=== PATIENT | male | born 1940 | race Caucasian/White ===

== ENCOUNTER 2016-11-24 05:40 | Emergency (ER) | payer MEDICARE ==
[~2016-11-24] VITALS: Ht 170.2 cm; Wt 86.8 kg
[~2016-11-24 05:40] MED LIST: ACTOS30 MG OR; ALOCRIL OU; ANUCORT-HC25 MG RE; ASA LOW STR81 MG OR; ASPIRIN LOW DOS81 M1 PO; BACTRIM1 TAB PO; BL ADULT ASA81 MG OR; CADUET10 MG/20 M OR; CHERATUSSIN PO; CIPRO XR500 MG PO; CIPRO500 MG PO; DILAUDID2 MG PO; DULCOLAX5 MG PO; FLEXERIL OR; FLEXERIL5 MG OR; FLUTICASONE50 MCG; HYDROCHLOROT12.5 MG PO; HYZAAR1 TA1 OR; LIPITOR40 MG OR; LISINOPRIL10 MG PO; LORTAB5 PO; METFORMIN500 MG PO; NITROGLYCER0.4 MG SL; TRAMADOL HCL50 MG PO; ULTRAM50 M1 OR; ZESTRIL10 M1 PO
[2016-11-24] MEDS ORDERED: WARFARIN1 MG PO (06:00)
[2016-11-24] MEDS ORDERED: COREG3.125 MG PO (06:00)
[2016-11-24] MEDS ORDERED: ALDACTONE25 MG PO (06:01)
[2016-11-24] MEDS ORDERED: FERR SULFATE325 MG PO (06:01)
[2016-11-24] MEDS ORDERED: DOCUSATE SOD100 M2 PO (06:03)
[2016-11-24] MEDS ORDERED: RISPERIDONE0.5 MG PO (06:04)
[2016-11-24] MEDS ORDERED: WARFARIN2 MG PO (06:04)
[2016-11-24] MEDS ORDERED: LASIX 20 MG20 MG/TAB PO (06:05)
[2016-11-24] MEDS ORDERED: LEVOTHYROXIN50 MCG PO (06:05)
[2016-11-24] MEDS ORDERED: POT CHLORIDE10 ME5 PO (06:07)
[2016-11-24 06:26] LABS: HEMATOCRIT 38.5 % (39.0-50.0); HEMOGLOBIN 12.9 g/dl (14.0-18.0); IMMATURE GRANULOCYTES 0.5 % (0.0-1.0); MEAN CELL VOLUME 90.8 fL CALC (80.0-100.0); MEAN CORPUSCULAR HGB 30.4 pG CALC (26.0-32.0); MEAN CORPUSCULAR HGB CONC 33.5 g/L CALC (32.0-36.0); NEUT# 4.09 thou/uL (1.82-7.42); RED BLOOD COUNT 4.24 mill/uL (4.70-6.10)
[2016-11-24 06:38] LABS: ALBUMIN 4.5 g/dL (3.2-5.0); BILIRUBIN, TOTAL 0.4 mg/dL (0.0-1.4); CALCIUM 9.3 mg/dL (8.4-10.2); CREATININE 1.6 mg/dL (0.7-1.3); POTASSIUM 4.4 mmol/l (3.5-5.1); TOTAL PROTEIN 8.4 g/dL (6.3-8.2)
[2016-11-24 06:42] LABS: INTERNATIONAL NORMALIZED RATIO 2.1 RATIO (0.7-1.3); PROTHROMBIN TIME 23.7 SECONDS (9.0-12.5)
[2016-11-24] MEDS ORDERED: COUMADIN2.5 MG PO (06:44)
[2016-11-24 07:51] LABS: URINE BILIRUBIN - DIPSTICK NEGATIVE (NEGATIVE); URINE BLOOD DIPSTICK NEGATIVE (NEGATIVE); URINE CLARITY CLEAR; URINE COLOR YELLOW; URINE GLUCOSE - DIPSTICK NEGATIVE (NEGATIVE); URINE KETONE NEGATIVE (NEGATIVE); URINE LEUK ESTERASE NEGATIVE (NEGATIVE); URINE NITRITE - DIPSTICK NEGATIVE (Negative); URINE PH 5.5 (4.5-8.0); URINE PROTEIN - DIPSTICK NEGATIVE (NEG-TRACE); URINE SPECIFIC GRAVITY <=1.005; URINE UROBILINOGEN - DIPSTICK 0.2 E.U./dL (0.2)
[2016-11-24 08:20] VITALS: BP 176/74
== END 2016-11-24 08:20 | disposition short-term general hospital (02) ==
LOC: ED 05:40
PROVIDERS: Emergency Medicine
DX: I63.9 Cerebral infarction, unspecified (principal); G81.90 Hemiplegia, unspecified affecting unspecified side; I10 Essential (primary) hypertension

== ENCOUNTER 2016-12-21 19:59 | Inpatient (IN) | payer MEDICARE ==
[~2016-12-21] VITALS: Ht 170.2 cm; Wt 82.3 kg
[~2016-12-21 19:59] MED LIST changes: +ALDACTONE25 MG PO; +COREG3.125 MG PO; +COUMADIN2.5 MG PO; +DOCUSATE SOD100 M2 PO; +FERR SULFATE325 MG PO; +LASIX 20 MG20 MG/TAB PO; +LEVOTHYROXIN50 MCG PO; +POT CHLORIDE10 ME5 PO; +RISPERIDONE0.5 MG PO; +WARFARIN1 MG PO; +WARFARIN2 MG PO
[2016-12-21] MEDS ORDERED: COREG3.125 MG PO ×2 (20:16→20:19)
[2016-12-21] MEDS ORDERED: ASPIRIN81 MG PO (20:20)
[2016-12-21] MEDS ORDERED: LIPITOR40 M1 PO (20:20)
[2016-12-21] MEDS ORDERED: MICRO-K10 MEQ PO (20:25)
[2016-12-21] MEDS ORDERED: PROMOLAXIN100 MG PO (20:26)
[2016-12-21 20:47] LABS: HEMATOCRIT 37.3 % (39.0-50.0); HEMOGLOBIN 12.9 g/dl (14.0-18.0); IMMATURE GRANULOCYTES 0.4 % (0.0-1.0); MEAN CELL VOLUME 90.5 fL CALC (80.0-100.0); MEAN CORPUSCULAR HGB 31.3 pG CALC (26.0-32.0); MEAN CORPUSCULAR HGB CONC 34.6 g/L CALC (32.0-36.0); NEUT# 6.7 thou/uL (1.82-7.42); RED BLOOD COUNT 4.12 mill/uL (4.70-6.10); RED CELL DISTRI WIDTH 12.8 % (11.5-15.5)
--- NOTE | 2016-12-21 20:57 | NUR ---
STROKE EVALUATION COMPLETED VIA TELESTROKE. NEUROLOGIST DOES NOT FEEL THAT PATIENT IS A CANDIDATE FOR TPA POR TRANSFER TO [facility] AT THIS TIME. PATIENT ASKED IF HE WOULD BE GOING BACK TO [facility] AT THIS TIME. ADVISED HIOM THAT HE WOULD PROBABLY BE ADMITTED [facility].
[2016-12-21 21:03] LABS: ALBUMIN 4.2 g/dL (3.2-5.0); ALKALINE PHOSPHATASE 84 u/l (38-126); BILIRUBIN, TOTAL 0.7 mg/dL (0.0-1.4); BUN 22 mg/dL (8-23); BUN/CREATININE RATIO 18 (12-20 (CALC)); CALCIUM 9.2 mg/dL (8.4-10.2); CARBON DIOXIDE 21 mmol/l (22-30); CHLORIDE 102 mmol/l (95-108); CREATININE 1.3 mg/dL (0.7-1.3); GFR 53 ML/MIN (>=60 (CALC)); GFR FOR AFR.AMER. > 60 ML/MIN (>=60 (CALC)); GLUCOSE 91 mg/dL (82-115); SGOT/AST 37 u/l (19-48); SGPT/ALT 31 u/l (11-66); SODIUM 136 mmol/l (137-146); TOTAL PROTEIN 7.6 g/dL (6.3-8.2)
[2016-12-21 21:04] LABS: ANION GAP 18 (6-22 (CALC)); POTASSIUM 5.3 mmol/l (3.5-5.1)
[2016-12-21 21:14] LABS: MYOGLOBIN 70 ng/mL (0 - 121)
[2016-12-21 21:25] LABS: INTERNATIONAL NORMALIZED RATIO 2.4 RATIO (0.7-1.3); PROTHROMBIN TIME 27.6 SECONDS (9.0-12.5)
--- NOTE | 2016-12-21 22:54 | NUR ---
ADVISED OF ADMISSION TO THE ICU. PENDING THE ARRIVAL OF THE INPATIENT NURSING AIDE. PATIENT UNABLE TO GIVE A URINE SPECIMEN AT THIS TIME.
[2016-12-22] VITALS (13 sets, daily range): BP systolic 111–155; BP diastolic 49–68
--- NOTE | 2016-12-22 00:01 | NUR ---
76 yr old white male adm icu8 per stretcher from. transferred self with 2 assists to bed. bed weight obtained. rt sided weakness & facial droop conts. pt admits "no different" from stroke 1 month ago. cardiac technologist shows sinus ulises. #20 lac rl infusing @ [id number]. remains npo. history obtained per pt & er record. oriented to room. fall precautions initiated.
--- NOTE | 2016-12-22 00:02 | NUR ---
REPORT GIVEN TO ISABELLE VIERA IN THE ICU. PATIENT IS UNCHANGED NEUROLOGICALLY. TAKEN UPSTAIRS TO THE ICU BY RAMSES WADE RN WITH PATENT IV LINE AND CM.
--- NOTE | 2016-12-22 00:35 | NUR ---
voided per urinal. urine spec sent to lab.
[2016-12-22 01:09] LABS: URINE BILIRUBIN - DIPSTICK NEGATIVE (NEGATIVE); URINE BLOOD DIPSTICK NEGATIVE (NEGATIVE); URINE CLARITY CLEAR; URINE COLOR YELLOW; URINE GLUCOSE - DIPSTICK NEGATIVE (NEGATIVE); URINE KETONE NEGATIVE (NEGATIVE); URINE LEUK ESTERASE NEGATIVE (NEGATIVE); URINE NITRITE - DIPSTICK NEGATIVE (Negative); URINE PROTEIN - DIPSTICK NEGATIVE (NEG-TRACE); URINE UROBILINOGEN - DIPSTICK 0.2 E.U./dL (0.2)
--- NOTE | 2016-12-22 02:00 | NUR ---
eyes closed. no distress. monitor shows sinus ulises hr 46.
--- NOTE | 2016-12-22 04:00 | NUR ---
awakens easily. no change in neuro status. denies c/o. monitor shows sinus ulises hr 40.
--- NOTE | 2016-12-22 05:15 | NUR ---
lab here. blood drawn.
[2016-12-22 05:36] LABS: HEMATOCRIT 38.1 % (39.0-50.0); HEMOGLOBIN 12.9 g/dl (14.0-18.0); MEAN CELL VOLUME 90.5 fL CALC (80.0-100.0); MEAN CORPUSCULAR HGB 30.6 pG CALC (26.0-32.0); MEAN CORPUSCULAR HGB CONC 33.9 g/L CALC (32.0-36.0); RED BLOOD COUNT 4.21 mill/uL (4.70-6.10); RED CELL DISTRI WIDTH 12.7 % (11.5-15.5)
[2016-12-22 05:53] LABS: INTERNATIONAL NORMALIZED RATIO 2.4 RATIO (0.7-1.3); PROTHROMBIN TIME 27.5 SECONDS (9.0-12.5)
[2016-12-22 06:03] LABS: ANION GAP 15 (6-22 (CALC)); BUN 19 mg/dL (8-23); BUN/CREATININE RATIO 16 (12-20 (CALC)); CALCIUM 9.3 mg/dL (8.4-10.2); CALCULATED LDLCHOLESTEROL 60 mg/dL (62-129 (CALC)); CARBON DIOXIDE 22 mmol/l (22-30); CHLORIDE 104 mmol/l (95-108); CREATININE 1.2 mg/dL (0.7-1.3); GFR 59 ML/MIN (>=60 (CALC)); GFR FOR AFR.AMER. > 60 ML/MIN (>=60 (CALC)); GLUCOSE 80 mg/dL (82-115); HDL CHOLESTEROL 28 mg/dL (>=40); POTASSIUM 4.6 mmol/l (3.5-5.1); SODIUM 137 mmol/l (137-146); TOTAL CHOLESTEROL 108 mg/dl (0-199); TOTAL TRIGLYCERIDES 100 mg/dl (30-149); VLDL CHOLESTROL 20 mg/dl (0-38 (CALC))
[2016-12-22 06:34] LABS: TSH, 3RD GENERATION 2.96 uIU/mL (0.47 - 4.68)
--- NOTE | 2016-12-22 07:15 | NUR ---
PT RESTING IN BED ALERT AND ORIENTED, SPEECH SLIGHTLY SLURRED AND RIGHT SIDE WEAKNESS NOTED UE HAS MORE PRONOUNCED WEKANESS, BUT PT STATES IT IS BACK TO HIS "NORMAL". 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
--- NOTE | 2016-12-22 08:00 | NUR ---
IVF CONTINUE AT PRESCRIBED RATE, OFFERS NO NEW COMPLAINTS, CALL COLE WITHIN REACH, WILL CONTINUE TO MONITOR.
--- NOTE | 2016-12-22 09:00 | NUR ---
assisted with urinal usage, voided 300 ml clear yellow urine, took am medications with water and tolerated with no S/S of aspiration or difficulty swallowing, call davis remains within reach, will continue to monitor.
--- NOTE | 2016-12-22 10:15 | NUR ---
Pt dozes intermittenly, offers no new complaints, call davis within reach, will continue to monitor.
[2016-12-22] MEDS ORDERED: LOSARTAN POT50 MG PO (10:48)
[2016-12-22] MEDS ORDERED: LASIX 20 MG20 MG/TAB PO (10:48)
--- NOTE | 2016-12-22 11:30 | NUR ---
Pt verbalizes understanding of planned discharge and asking about what time he will return to the [facility], takes po medication w/o incident, and aware of planned diet awaitign lunch arrival to verify diet tolerance, will continue to monitor.
--- NOTE | 2016-12-22 12:00 | NUR ---
PT ATE 100% OF AFTERNOON MEAL WIOTH NO S/S OF ASPIRATION, TOLERATED DIET WELL.
--- NOTE | 2016-12-22 12:48 | NUR ---
SPOKE WITH GABRIELA ADMINSTRATOR AT [facility] SHE ARE AWARE OF HH ORDER TO CONTINUE AND SHE STATES SHE WILL CONTACT THE HOME HEALTH AGENCY THAT PT IS ACTIVE WITH (ASSISTED HH AGENCY PER [facility]) D/C INSTRUCTIONS AND ORDERS FAXED TO [facility] PER THEIR REQUEST.
--- NOTE | 2016-12-22 13:01 | NUR ---
PT DRESSED IN HIS PERSONAL CLOTHES AFTER INCONTINENCE BRIEF ON ALL DONE PER PT REQUEST, DURING PREVIOUSLY CHARTED CONVERSTAIONW GABE DUKE SHE IAS AWARE OF PLANNED D/C AND NEED FOR TRANSPORT BACK TO FACILITY AND STATES SHE WILL CONTACT HER TEAM TO COME AND AUDIENCE COORDINATOR PATIENT.
--- NOTE | 2016-12-22 13:14 | NUR ---
STAFF MEMBER FROM [facility] HERE TO [facility] PATIENT, PT STOOD WITH MOD/MAX ASSIST AND INTO WHEELCHAIR TO THEIR [place] VEHICLE VIA WC WITH [facility] AND [facility] STAFF, ALL BELONGINGS AND D/C INSTRUCTIONS SENT WITH PATIENT
== END 2016-12-22 13:15 | disposition designated cancer center or children's hospital (05) | DRG 69 ==
LOC: ENPENDDIS → ED 19:59 → ED-I 22:12 → ED 22:20 → ICU 22:21
PROVIDERS: Emergency Medicine; ADMIT Internal Medicine; ATTEND Internal Medicine
DX: G45.9 Transient cerebral ischemic attack, unspecified (principal); I69.351 Hemiplegia and hemiparesis following cerebral infarction affecting right dominant side; I48.0 Paroxysmal atrial fibrillation; R00.1 Bradycardia, unspecified; I69.322 Dysarthria following cerebral infarction; N18.3 Chronic kidney disease, stage 3 (moderate); I12.9 Hypertensive chronic kidney disease with stage 1 through stage 4 chronic kidney disease, or unspecified chronic kidney disease; E78.5 Hyperlipidemia, unspecified; I25.5 Ischemic cardiomyopathy; I25.10 Atherosclerotic heart disease of native coronary artery without angina pectoris; I44.0 Atrioventricular block, first degree; Z95.5 Presence of coronary angioplasty implant and graft; Z98.2 Presence of cerebrospinal fluid drainage device; Z87.820 Personal history of traumatic brain injury; Z99.3 Dependence on wheelchair; Z79.01 Long term (current) use of anticoagulants

== ENCOUNTER 2017-05-21 20:37 | Observation (INO) | payer MEDICARE ==
[~2017-05-21] VITALS: Ht 170.2 cm; Wt 79.9 kg
[~2017-05-21 20:37] MED LIST changes: +ASPIRIN81 MG PO; +LIPITOR40 M1 PO; +LOSARTAN POT50 MG PO; +MICRO-K10 MEQ PO; +PROMOLAXIN100 MG PO
[2017-05-21] MEDS ORDERED: KLOR-CON 1010 MEQ PO (21:05)
[2017-05-21] MEDS ORDERED: FLUOXETINE10 M2 PO (21:06)
[2017-05-21] MEDS ORDERED: COREG3.125 MG PO (21:08)
[2017-05-21] MEDS ORDERED: VITAMIN D50000 UNIT PO (21:09)
[2017-05-21] MEDS ORDERED: WARFARIN5 MG PO (21:11)
[2017-05-21 22:57] LABS: HEMATOCRIT 33.6 % (39.0-50.0); HEMOGLOBIN 11.3 g/dl (14.0-18.0); IMMATURE GRANULOCYTES 0.4 % (0.0-1.0); MEAN CELL VOLUME 92.3 fL CALC (80.0-100.0); MEAN CORPUSCULAR HGB CONC 33.6 g/L CALC (32.0-36.0); NEUT# 6.2 thou/uL (1.82-7.42); RED BLOOD COUNT 3.64 mill/uL (4.70-6.10); RED CELL DISTRI WIDTH 13.2 % (11.5-15.5)
[2017-05-21 23:09] LABS: ALBUMIN 4.3 g/dL (3.2-5.0); BILIRUBIN, TOTAL 0.6 mg/dL (0.0-1.4); CALCIUM 9.1 mg/dL (8.4-10.2); CREATININE 1.8 mg/dL (0.7-1.3); POTASSIUM 4.8 mmol/l (3.5-5.1); TOTAL PROTEIN 7.3 g/dL (6.3-8.2)
[2017-05-21 23:13] LABS: URINE BILIRUBIN - DIPSTICK NEGATIVE (NEGATIVE); URINE BLOOD DIPSTICK NEGATIVE (NEGATIVE); URINE CLARITY CLEAR; URINE COLOR YELLOW; URINE GLUCOSE - DIPSTICK NEGATIVE (NEGATIVE); URINE KETONE NEGATIVE (NEGATIVE); URINE LEUK ESTERASE NEGATIVE (NEGATIVE); URINE NITRITE - DIPSTICK NEGATIVE (Negative); URINE PROTEIN - DIPSTICK NEGATIVE (NEG-TRACE); URINE UROBILINOGEN - DIPSTICK 0.2 E.U./dL (0.2)
[2017-05-21 23:15] LABS: INTERNATIONAL NORMALIZED RATIO 1.5 RATIO (0.7-1.3); PROTHROMBIN TIME 16.2 SECONDS (9.0-12.5)
[2017-05-21 23:17] LABS: BARBITURATES NEGATIVE (NEGATIVE); COCAINE NEGATIVE (NEGATIVE); METHADONE NEGATIVE (NEGATIVE); OXCYCODONE NEGATIVE (NEGATIVE); TETRAHYDROCANNABIONOL NEGATIVE (NEGATIVE); TRICYLIC ANTIDEPRESSANTS NEGATIVE (NEGATIVE)
[2017-05-22 01:28] VITALS: BP 136/59
[2017-05-22 01:33] VITALS: BP 119/70
[2017-05-22 01:38] VITALS: BP 125/70
[2017-05-22 03:55] VITALS: BP 104/55
[2017-05-22 05:08] LABS: CREATININE 1.5 mg/dL (0.7-1.3); POTASSIUM 4.2 mmol/l (3.5-5.1)
[2017-05-22 05:24] LABS: HEMATOCRIT 33.4 % (39.0-50.0); HEMOGLOBIN 11.3 g/dl (14.0-18.0); MEAN CORPUSCULAR HGB 31.5 pG CALC (26.0-32.0); MEAN CORPUSCULAR HGB CONC 33.8 g/L CALC (32.0-36.0); RED BLOOD COUNT 3.59 mill/uL (4.70-6.10)
[2017-05-22 07:43] VITALS: BP 120/55
[2017-05-22 11:07] VITALS: BP 116/71
== END 2017-05-22 14:12 ==
LOC: ED 20:37 → ED-I 22:37 → ED 05-22 00:31 → MS2 05-22 00:32
PROVIDERS: Emergency Medicine; ADMIT Internal Medicine; ATTEND Internal Medicine
DX: S00.81XA Abrasion of other part of head, initial encounter (principal); S80.211A Abrasion, right knee, initial encounter; E03.9 Hypothyroidism, unspecified; I10 Essential (primary) hypertension; J44.9 Chronic obstructive pulmonary disease, unspecified; N17.9 Acute kidney failure, unspecified; E11.9 Type 2 diabetes mellitus without complications; I69.951 Hemiplegia and hemiparesis following unspecified cerebrovascular disease affecting right dominant side; I48.0 Paroxysmal atrial fibrillation; I25.5 Ischemic cardiomyopathy; I25.10 Atherosclerotic heart disease of native coronary artery without angina pectoris; D64.9 Anemia, unspecified; I25.2 Old myocardial infarction; W18.30XA Fall on same level, unspecified, initial encounter; Y92.128 Other place in nursing home as the place of occurrence of the external cause; Z79.01 Long term (current) use of anticoagulants; Z86.718 Personal history of other venous thrombosis and embolism; Z98.2 Presence of cerebrospinal fluid drainage device; Z85.51 Personal history of malignant neoplasm of bladder; Z95.5 Presence of coronary angioplasty implant and graft; Z95.2 Presence of prosthetic heart valve

== ENCOUNTER 2019-02-15 17:55 | Emergency (ER) | payer MEDICARE ==
[~2019-02-15] VITALS: Ht 170.2 cm; Wt 80.0 kg
[~2019-02-15 17:55] MED LIST changes: +FLUOXETINE10 M2 PO; +KLOR-CON 1010 MEQ PO; +VITAMIN D50000 UNIT PO; +WARFARIN5 MG PO
[2019-02-15 18:33] LABS: HEMATOCRIT 33.2 % (39.0-50.0); IMMATURE GRANULOCYTES 0.5 % (0.0-5.0); MEAN CELL VOLUME 90.7 fL CALC (80.0-100.0); MEAN CORPUSCULAR HGB 30.1 pG CALC (26.0-32.0); MEAN CORPUSCULAR HGB CONC 33.1 g/L CALC (32.0-36.0); NEUT# 5.67 thou/uL (1.82-7.42); RED BLOOD COUNT 3.66 mill/uL (4.70-6.10); RED CELL DISTRI WIDTH 13.1 % (11.5-15.5)
[2019-02-15 18:52] LABS: INTERNATIONAL NORMALIZED RATIO 2.5 RATIO (0.7-1.3)
[2019-02-15 19:05] VITALS: BP 147/78
== END 2019-02-15 19:23 | disposition home or self-care (01) ==
LOC: ED 17:55
PROVIDERS: Family Medicine
DX: S50.811A Abrasion of right forearm, initial encounter (principal); F03.90 Unspecified dementia, unspecified severity, without behavioral disturbance, psychotic disturbance, mood disturbance, and anxiety; X58.XXXA Exposure to other specified factors, initial encounter; Y92.099 Unspecified place in other non-institutional residence as the place of occurrence of the external cause; Z79.01 Long term (current) use of anticoagulants

== ENCOUNTER 2019-10-20 | Emergency (ER) | payer MEDICARE ==
[2019-10-20 08:48] LABS: HEMATOCRIT 28.5 % (39.0-50.0); HEMOGLOBIN 9.4 g/dl (14.0-18.0); IMMATURE GRANULOCYTES 0.3 % (0.0-5.0); MEAN CELL VOLUME 91.3 fL CALC (80.0-100.0); MEAN CORPUSCULAR HGB 30.1 pG CALC (26.0-32.0); NEUT# 8.68 thou/uL (1.82-7.42); RED BLOOD COUNT 3.12 mill/uL (4.70-6.10); RED CELL DISTRI WIDTH 13.6 % (11.5-15.5)
[2019-10-20 09:07] LABS: BILIRUBIN, TOTAL 0.6 mg/dL (0.0-1.4); CREATININE 1.6 mg/dL (0.7-1.3); POTASSIUM 4.8 mmol/l (3.5-5.1); PROTHROMBIN TIME 20.1 SECONDS (9.0-12.5); TOTAL PROTEIN 7.1 g/dL (6.3-8.2)
[2019-10-20 11:38] LABS: URINE BILIRUBIN - DIPSTICK NEGATIVE (NEGATIVE); URINE BLOOD DIPSTICK NEGATIVE (NEGATIVE); URINE COLOR YELLOW; URINE GLUCOSE - DIPSTICK NEGATIVE (NEGATIVE); URINE KETONE NEGATIVE (NEGATIVE); URINE LEUK ESTERASE NEGATIVE (NEGATIVE); URINE NITRITE - DIPSTICK NEGATIVE (Negative); URINE PH 5.5 (4.5-8.0); URINE PROTEIN - DIPSTICK NEGATIVE (NEG-TRACE); URINE UROBILINOGEN - DIPSTICK 0.2 E.U./dL (0.2)
[2019-10-20] MEDS ORDERED: LORATADINE10 M1 PO (12:20)
== END 2019-10-20 12:33 | disposition home or self-care (01) ==
DX: R51 Headache (principal); D72.829 Elevated white blood cell count, unspecified; E11.9 Type 2 diabetes mellitus without complications; I10 Essential (primary) hypertension; F03.90 Unspecified dementia, unspecified severity, without behavioral disturbance, psychotic disturbance, mood disturbance, and anxiety; I25.2 Old myocardial infarction; W18.30XA Fall on same level, unspecified, initial encounter; Z86.73 Personal history of transient ischemic attack (TIA), and cerebral infarction without residual deficits; Z79.01 Long term (current) use of anticoagulants; R94.31 Abnormal electrocardiogram [ECG] [EKG]

== ENCOUNTER 2019-12-16 06:30 | Observation (INO) | payer MEDICARE ==
[~2019-12-16] VITALS: Ht 170.2 cm; Wt 78.5 kg
[~2019-12-16 06:30] MED LIST changes: +LORATADINE10 M1 PO
--- NOTE | 2019-12-16 06:45 | NUR ---
PT. TO ROOM 10 VIA EMS WITH C/O FALLING OOB THIS AM AND INJURING HIS NOSE. ABRASION TO BRIDGE OF NOSE AND BLOODY DRAINAGE FROM RIGHT NARES. PT. C/O PAIN A 3 ON A SCALE OF 1-10.
--- NOTE | 2019-12-16 06:49 | NUR ---
REPORT TO ISAIAH HURTADO.
--- NOTE | 2019-12-16 06:50 | NUR ---
REPORT RECIEVED FROM GENESIS YA; PT SWABBED FOR COVID-19 @0229; PT DENIES ANY NEEDS AT THIS TIME; WILL CONTINUE TO MONITOR
--- NOTE | 2019-12-16 07:50 | NUR ---
PT RESTING ON STRETCHER; ADVISED OF CONTINUED TESTING AND CONTINUED WAIT TIME; PT C/O LEFT KNEE PAIN; MD NOTIFIED; LABS DRAWN; PT DENIES ANY OTHER NEEDS AT THIS TIME; WILL CONTINUE TO MONITOR
[2019-12-16 08:32] LABS: HEMOGLOBIN 9.9 g/dl (14.0-18.0); IMMATURE GRANULOCYTES 0.4 % (0.0-5.0); MEAN CELL VOLUME 89.8 fL CALC (80.0-100.0); MEAN CORPUSCULAR HGB 29.6 pG CALC (26.0-32.0); NEUT# 4.06 thou/uL (1.82-7.42); RED BLOOD COUNT 3.34 mill/uL (4.70-6.10); RED CELL DISTRI WIDTH 13.6 % (11.5-15.5)
--- NOTE | 2019-12-16 08:46 | NUR ---
PT RESTING ON STRETCHER; NO S/S OF DISTRESS NOTED; VSS; PT ADVISED OF CONTINUED WAIT TIME; CALL LIGHT WITHIN REACH; WILL CONTINUE TO MONITOR
[2019-12-16 08:49] LABS: ACT PARTIAL THROMBO TIME 40.1 SECONDS (20.0-32.5)
[2019-12-16 08:50] LABS: INTERNATIONAL NORMALIZED RATIO 3.1 RATIO (0.7-1.3); PROTHROMBIN TIME 30.7 SECONDS (9.0-12.5)
[2019-12-16 08:52] LABS: BILIRUBIN, TOTAL 0.4 mg/dL (0.0-1.4); CREATININE 1.6 mg/dL (0.7-1.3); POTASSIUM 4.9 mmol/l (3.5-5.1); TOTAL PROTEIN 7.1 g/dL (6.3-8.2)
--- NOTE | 2019-12-16 09:50 | NUR ---
DR RODRIGUEZ AT BEDSIDE TO DISCUSS POC AND PLAN TO ADMIT FOR OBSERVATION; PT VERBALIZES UNDERSTANDING; VSS; WILL CONTINUE TO MONITOR
--- NOTE | 2019-12-16 10:30 | NUR ---
PT ADVISED OF POC AND CONTINUED WAIT TIME
--- NOTE | 2019-12-16 10:57 | NUR ---
PT ARRIVED TO MED/SURG ROOM 291 IN STABLE CONDITION VIA STRETCHER ACCOMPANIED BY GENESIS LANDAVERDE;PT ASSISTED TO HOSPITAL BED;PT A&O X3,ORIENTED TO ROOM AND CALL LIGHT SYSTEM;PT REPORTS GETTING OUT OF BED THIS MORNING AND TRIPPING,FALLING AND HITTING HIS HEAD OFF THE GROUND;PT DENIES ANY CURRENT PAIN AT THIS TIME AFTER PAIN MEDICATION ADMINISTRATION IN ER,PAIN SCALE AND REPORTING EDUCATED;RESPIRATIONS EVEN AND UNLABORED ON RA,CLEAR LUNG SOUNDS;ABDOMEN SOFT ON PALPATION AND ACTIVE IN ALL 4 QUADRANTS,LAST BM 12/15/19;WEAK PEDAL PULSES;TELE MONITORING IN PLACE;#22G TO LAC FLUSHED AND PATENT,SITE APPEARS HEALTHY;ABRASIONS NOTED TO THE BRIDGE OF PT NOSE AND FACE;ALLERGY AND FALL BAND APPLIED;PT DENIES ANY ADDITIONAL NEEDS AT THIS TIME AND IS ENCOURAGED TO CALL FOR ASSISTANCE IF NEEDED;FALL PRECAUTIONS REMAIN IN PLACE WITH BED IN THE LOWEST POSITION AND BED ALARM ON FOR SAFETY;CALL LIGHT IN REACH;WILL CONTINUE TO MONITOR
--- NOTE | 2019-12-16 11:00 | NUR ---
Admission Note Report Given to: MARIA LUISA BURRIS Transported by: Wheelchair X Stretcher Transported with: X Nurse Transporter X Patent IV O2 X Risk Intern Location: ICU X MS2
[2019-12-16 11:18] VITALS: BP 160/66
--- NOTE | 2019-12-16 12:20 | NUR ---
PT RESTING IN SEMI FOWLERS POSITION EATING LUNCH;RESPIRATIONS REMAIN EVEN AND UNLABORED ON RA;PT DENIES ANY CURRENT PAIN OR NEEDS;TELE MONITORING IN PLACE;ASSESSMENT REMAINS UMCHANGED AT THIS TIME;PT ENCOURAGED TO CALL FOR ASSISTANCE IF NEEDED;FALL PRECAUTIONS IN PLACE WITH BED IN THE LOWEST POSITION AND BED ALARM ON FOR SAFETY;CALL LIGHT IN REACH;WILL CONTINUE TO MONITOR
[2019-12-16 15:15] VITALS: BP 124/58
--- NOTE | 2019-12-16 15:30 | NUR ---
PT RESTING IN SEMI FOWLERS POSITION;RESPIRATIONS EVEN AND UNLABORED ON RA;PT DENIES ANY CURRENT PAIN OR NEEDS;TELE MONITORING IN PLACE;IV SITE PATENT;ASSESSMENT REMAINS UNCHANGED AT THIS TIME;ENCOURAGED PT TO CALL FOR ASSISTANCE IF NEEDED;FALL PRECAUTIONS REMAIN IN PLACE WITH BED ALARM ON FOR SAFETY;CALL LIGHT IN REACH;WILL CONTINUE TO MONITOR
[2019-12-16 18:53] VITALS: BP 130/62
--- NOTE | 2019-12-16 19:06 | NUR ---
REPORT RECEIVED FROM MARIA LUISA BURRIS. PT RESTING IN BED. NO S/S OF DISTRESS. BED ALARM ACTIVE FOR PT SAFETY. WILL CONTINUE TO MONITOR.
--- NOTE | 2019-12-16 21:06 | NUR ---
PT RESTING IN BED. ALERT AND ORIENTED. RESPIRATIONS EVEN AN DUNLABORED, LUNGS SOUND CLEAR DIMINISHED. PEDAL PULSES ARE WEAK. PT DENIES ANY PAIN AT THIS TIME. PT PROVIDED WITH ICE WATER. SAFETY PRECAUTIONS IN PLACE. WILL CONTINUE TO MONITOR.
--- NOTE | 2019-12-17 00:10 | NUR ---
PT RESTING IN BED. NO S/S OF DISTRESS AT THIS TIME. BED ALARM ACTIVE FOR PT SAFETY. WILL CONTINUE TO MONITOR.
[2019-12-17 01:23] VITALS: BP 132/79
--- NOTE | 2019-12-17 03:51 | NUR ---
PT RESTING IN BED, NO S/S OF DISTRESS, BED ALARM ACTIVE FOR PT SAFETY. WILL CONTINUE TO MONITOR.
--- NOTE | 2019-12-17 07:30 | NUR ---
REPORT RECEIVED FROM GENESIS WILLIS. PT SITTING UP ON EDGE OF BED; ALERT AND ORIENTED. SET UP FOR BREAKFAST. DENIES PAIN. RESPIRATIONS EVEN AND UNLABORED ON ROOM AIR. ABRASION TO NOSE; NEURO CHECK WNL. TELE ON. ON AIRBORNE;CONTACT PRECAUTIONS PENDING COVID TEST RESULTS. PLAN OF CARE REVIEWED. PT ENCOURAGED TO VERBALIZE CONCERNS. STATES UNDERSTANDING AND VERBALIZES WITH TO GO HOME. SAFETY MEASURES IN PLACE. CALL LIGHT WITHIN REACH.
[2019-12-17 07:43] LABS: HEMATOCRIT 29.9 % (39.0-50.0); MEAN CELL VOLUME 89.5 fL CALC (80.0-100.0); MEAN CORPUSCULAR HGB 29.9 pG CALC (26.0-32.0); MEAN CORPUSCULAR HGB CONC 33.4 g/dL CAL (32.0-36.0); RED BLOOD COUNT 3.34 mill/uL (4.70-6.10); RED CELL DISTRI WIDTH 13.4 % (11.5-15.5)
[2019-12-17 07:54] LABS: CHOLESTEROL HDL RATIO 4.1 (<4.4 (CALC)); MAGNESIUM 2.2 mg/dL (1.6-2.3)
[2019-12-17 07:55] LABS: ALBUMIN 3.5 g/dL (3.2-5.0); BILIRUBIN, TOTAL 0.4 mg/dL (0.0-1.4); CREATININE 1.8 mg/dL (0.7-1.3); POTASSIUM 5.3 mmol/l (3.5-5.1); TOTAL PROTEIN 6.3 g/dL (6.3-8.2)
[2019-12-17 08:00] VITALS: BP 123/58
[2019-12-17 08:10] LABS: INTERNATIONAL NORMALIZED RATIO 2.9 RATIO (0.7-1.3); PROTHROMBIN TIME 28.7 SECONDS (9.0-12.5)
--- NOTE | 2019-12-17 08:53 | NUR ---
DR. SAPP AT BEDSIDE.
[2019-12-17 11:00] VITALS: BP 135/50
--- NOTE | 2019-12-17 11:08 | NUR ---
TYLENOL GIVEN FOR 4/10 HEADACHE. NEURO CHECK REMAINS WNL FOR PT. ENCOURAGED TO GET UP TO CHAIR FOR LUNCH. IV SITE APPEARS HEALTHY AND FLUSHES.
--- NOTE | 2019-12-17 15:18 | NUR ---
PT AGITATED AND REQUESTING TO SPEAK WITH STARCH AND PROSIZE MIXER. NURSE TALKED TO PT; HE IS COLD AND WANTS TO GO HOME. EXPLAINED REASON FOR HOSPITALIAZATION AND PENDING COVID TEST RESULTS. PROVIDED HIS PANTS TO HIM PER REQUEST AND GIVEN A WARM BLANKET. PT SATISFIED.
[2019-12-17 16:12] VITALS: BP 131/45
--- NOTE | 2019-12-17 16:13 | NUR ---
SITTING UP IN BEDSIDE CHAIR; LINENS CHANGED. NO REQUESTS OR CONCERNS AT THIS TIME. SEEMS MORE RELAXED. CALL LIGHT WITHIN REACH.
--- NOTE | 2019-12-17 18:04 | NUR ---
STAFF FROM [facility] CALLED FOR UPDATE.
--- NOTE | 2019-12-17 19:04 | NUR ---
COVID-19 RESULTS NEGATIVE PER LAB
[2019-12-17 19:20] VITALS: BP 150/70
--- NOTE | 2019-12-17 20:15 | NUR ---
REPORT FROM KELI HURTADO. PT ALERT AND ORIENTED X3. MOVED FROM NEGATIVE PRESSURE TO ROOM 261. NO APPARENT DISTRESS NOTED. PT REMOVED IV SITE, CATH INTACT. DISCUSSED POC. PT FORGETFUL AND NONCOMPLIANT WITH CALL LIGHT. BED ALARM FOR SAFETY. CALL LIGHT WITHIN REACH. WILL CONTINUE TO MONITOR.
--- NOTE | 2019-12-17 20:18 | NUR ---
INFORMED OF COVID RESULTS
--- NOTE | 2019-12-17 20:35 | NUR ---
REPORT FROM KELI RN. PT ALERT TO SELF. MOVED FROM NEGATIVE PRESSURE TO ROOM 261. NO APPARENT DISTRESS NOTED. PT REMOVED IV SITE, CATH INTACT. DISCUSSED POC. PT DOES NOT VERBALIZED UNDERSTANDING, DUE TO COGNITIVE BARRIERS. WILL REINFORCE AND REORIENTED NEEDED. BED ALARM FOR SAFETY. CALL LIGHT WITHIN REACH. WILL CONTINUE TO MONITOR.
--- NOTE | 2019-12-17 22:22 | NUR ---
PT REFUSING CLINICAL REVIEWER AND NEW IV START AT THIS TIME. PHYSCIAN MADE AWARE AT THIS TIME. ORDERS RECEIVED TO D/C CLINICAL REVIEWER.
--- NOTE | 2019-12-17 23:45 | NUR ---
PT RESTING IN BED WITH EYES CLOSED. NO APPARENT DISTRESS NOTED. CALL LIGHT WITHIN REACH. WILL CONTINUE TO MONITOR.
[2019-12-18 00:30] VITALS: BP 123/45
[2019-12-18 03:30] VITALS: BP 134/66
--- NOTE | 2019-12-18 03:33 | NUR ---
PT RESTING IN BED WITH EYES CLOSED. NO APPARENT DISTRESS NOTED. CALL LIGHT WITHIN REACH AND BED ALARM FOR SAFETY. WILL CONTINUE TO MONITOR.
[2019-12-18 04:59] VITALS: BP 134/66
[2019-12-18 07:50] VITALS: BP 142/57
--- NOTE | 2019-12-18 07:50 | NUR ---
ASSESSMENT IS COMPLETED: HR IS REG,PULSES ARE STRONG X4, ABD IS SOFT WITH ACTIVE BS. BREATH SOUNDS ARE CLEAR,BILATERALLY, NO C/O SOB. ABRASION ON HIS NOSE IS CDI. CONTINUE TO OBSERVE AND MONITOR.
[2019-12-18 09:17] LABS: CREATININE 1.4 mg/dL (0.7-1.3)
[2019-12-18 09:30] LABS: POTASSIUM 5.3 mmol/l (3.5-5.1)
[2019-12-18 09:36] LABS: INTERNATIONAL NORMALIZED RATIO 1.9 RATIO (0.7-1.3); PROTHROMBIN TIME 19.6 SECONDS (9.0-12.5)
--- NOTE | 2019-12-18 11:44 | NUR ---
SPOKE WITH STAFF AT THE [facility]. RE: DISCHARGE AND WILL NEED TRANSPORT TO TAKE HOME. THEY WILL CALL A FAMILY MEMBER IN [place]OWN. CONTINUE TO OBSERVE AND MONITOR.
--- NOTE | 2019-12-18 12:00 | NUR ---
PT IS SITTING ON THE SIDE OF THE BED WAITING FOR DISCHARGE.
--- NOTE | 2019-12-18 12:46 | NUR ---
FAMILY HERE TO TRANSPORT PT BACK TO THE [facility]. PT ABLE TO MOVE WELL TO GET IN THE CAR WITH ALL BELONGINGS. DISCHARGE INFORMATION AND RESULTS WERE FAXED TO THE [facility] PER REQUEST. Discharge instructions given. Patient verbalizes understanding of same. Discharged in stable condition via Wheelchair to [facility] with family. All belongings sent with pt.
== END 2019-12-18 12:46 ==
LOC: ED 06:30 → ED-I 09:34 → ED 09:44 → ED-I 09:45 → MS2 09:45
PROVIDERS: Nurse Practitioner Family; ADMIT Internal Medicine; ATTEND Internal Medicine
DX: S00.03XA Contusion of scalp, initial encounter (principal); S00.31XA Abrasion of nose, initial encounter; S00.81XA Abrasion of other part of head, initial encounter; I12.9 Hypertensive chronic kidney disease with stage 1 through stage 4 chronic kidney disease, or unspecified chronic kidney disease; E11.22 Type 2 diabetes mellitus with diabetic chronic kidney disease; N18.3 Chronic kidney disease, stage 3 (moderate); I25.10 Atherosclerotic heart disease of native coronary artery without angina pectoris; D63.1 Anemia in chronic kidney disease; R00.1 Bradycardia, unspecified; I48.0 Paroxysmal atrial fibrillation; E87.1 Hypo-osmolality and hyponatremia; J44.9 Chronic obstructive pulmonary disease, unspecified; E03.9 Hypothyroidism, unspecified; F03.90 Unspecified dementia, unspecified severity, without behavioral disturbance, psychotic disturbance, mood disturbance, and anxiety; I25.2 Old myocardial infarction; W06.XXXA Fall from bed, initial encounter; Y92.099 Unspecified place in other non-institutional residence as the place of occurrence of the external cause; Z86.73 Personal history of transient ischemic attack (TIA), and cerebral infarction without residual deficits; Z79.01 Long term (current) use of anticoagulants; Z20.828 Contact with and (suspected) exposure to other viral communicable diseases
CPT/HCPCS: G0378

== ENCOUNTER 2020-02-12 12:42 | Observation (INO) | payer MEDICARE ==
[~2020-02-12] VITALS: Ht 170.2 cm; Wt 78.7 kg
--- NOTE | 2020-02-12 13:20 | NUR ---
pt restign supine with hob elevated and c collar intact. initiated iv and labs drawn. pt updated on poc and agreeable.
[2020-02-12 13:22] LABS: HEMATOCRIT 26.4 % (39.0-50.0); HEMOGLOBIN 8.6 g/dl (14.0-18.0); IMMATURE GRANULOCYTES 0.4 % (0.0-5.0); MEAN CELL VOLUME 90.7 fL CALC (80.0-100.0); MEAN CORPUSCULAR HGB 29.6 pG CALC (26.0-32.0); MEAN CORPUSCULAR HGB CONC 32.6 g/dL CAL (32.0-36.0); NEUT# 5.84 thou/uL (1.82-7.42); RED BLOOD COUNT 2.91 mill/uL (4.70-6.10); RED CELL DISTRI WIDTH 13.7 % (11.5-15.5)
[2020-02-12 13:40] LABS: ALBUMIN 3.7 g/dL (3.2-5.0); BILIRUBIN, TOTAL 0.5 mg/dL (0.0-1.4); TOTAL PROTEIN 6.7 g/dL (6.3-8.2)
[2020-02-12 13:43] LABS: POTASSIUM 5.5 mmol/l (3.5-5.1)
[2020-02-12 13:44] LABS: INTERNATIONAL NORMALIZED RATIO 3.1 RATIO (0.7-1.3); PROTHROMBIN TIME 30.5 SECONDS (9.0-12.5)
[2020-02-12] MEDS ORDERED: KLOR-CON SPRIN10 MEQ PO (14:04)
[2020-02-12] MEDS ORDERED: SPIRONOLACTONE25 MG PO (14:06)
--- NOTE | 2020-02-12 14:46 | NUR ---
INITIATED IV FLUIDS. VSS. PT UPDATED ON POC AND WAIT TIME FOR REMOVAL OF C COLLAR. MAEW. PT DENIES PAIN.
--- NOTE | 2020-02-12 15:50 | NUR ---
PT RESTING IN NO DISTRESS. VSS. UPDATED ON POC. RESP EVEN AND UNLABORED. PT ALERT TO SELF AND PLACE. PLEASANT AND CONVERSIVE
--- NOTE | 2020-02-12 16:20 | NUR ---
PT UP TO BEDSIDE TO STAND TO URINATE. NOTED ORTHOSTASIS WHEN STANDING AND RETURN OF DIZZINESS. EDP UPDATED. PT UPDATED ON POC AND ADMIT.PT AGREEABLE.
[2020-02-12 17:00] LABS: URINE BILIRUBIN - DIPSTICK NEGATIVE (NEGATIVE); URINE BLOOD DIPSTICK NEGATIVE (NEGATIVE); URINE COLOR YELLOW; URINE GLUCOSE - DIPSTICK NEGATIVE (NEGATIVE); URINE KETONE NEGATIVE (NEGATIVE); URINE LEUK ESTERASE NEGATIVE (NEGATIVE); URINE NITRITE - DIPSTICK NEGATIVE (Negative); URINE PROTEIN - DIPSTICK NEGATIVE (NEG-TRACE); URINE SPECIFIC GRAVITY 1.015; URINE UROBILINOGEN - DIPSTICK 0.2 E.U./dL (0.2)
--- NOTE | 2020-02-12 17:10 | NUR ---
TRANSPORTED TO [facility] VIA STRETCHER ON TELE IN NO DISTRESS
[2020-02-12 17:35] VITALS: BP 136/57
--- NOTE | 2020-02-12 18:07 | NUR ---
PT ARRIVES TO ROOM 280 FROM ER ACCOMPANIED BY EDUARD HURTADO. PT IS AWAKE, ALERT, TALKATIVE, ORIENTED X 2. LUNGS CLEAR, RA. FOREHEAD ABRASION FROM FALL EARLIER. TEDs PLACED. PT ADVISED TO CALL IF HE FEELS THAT HE NEEDS TO GET OOB. BED ALARM SET.
[2020-02-12 19:20] VITALS: BP 135/84
--- NOTE | 2020-02-12 20:03 | NUR ---
PT ASSESSMENT COMPLETED AT THIS TIME. NEURO'S INTACT, PT LOCX4. ASSISTED PT W/TV AND OFFERED SNACK/ASKED FOR SANDWICH/PROVIDED. NO S/O DISTRESS NOTED. PT DENIES HEADACHE/PAIN/N/V AT THIS TIME. WILL CONTINUE TO MONITOR. CALL LIGHT AT SIDE AND PT REORIENTED TO ITS USE, VERBALIZED UNDERSTANDING. BED ALARM PLACED FOR PRECAUTION MEASURES.
--- NOTE | 2020-02-12 21:55 | NUR ---
PT SLEEPING HIGH FOWLERS POSITION IN BED. NO S/O DISTRESS NOTED. LIGHTS OFF AND TV ON LOW.
[2020-02-13] VITALS (7 sets, daily range): BP systolic 99–118; BP diastolic 44–55
--- NOTE | 2020-02-13 03:28 | NUR ---
PT FOUND WITH LEGS HANGING OUT OF THE BED WITH URINAL IN HAND. 300CC OF CLEAR YELLOW URINE EMPTIED FROM URINAL. LIGHTS ARE OFF AND TV ON. NO S/O DISTRESS. ASSISTED PT REPOSITIONING IN BED AND PT COVERED FOR COMFORT. DENIES ANY OTHER NEEDS AT THIS TIME.
--- NOTE | 2020-02-13 05:53 | NUR ---
PT MEDICATED ORDERS PROVIDE. NO S/O DISTRESS NOTED. PT ASSISTED REPOSITIONING. LEFT DRINKING WATER AND WATCHING TV. LAB ARRIVING TO ROOM I WAS LEAVING.
[2020-02-13 06:33] LABS: INTERNATIONAL NORMALIZED RATIO 3.4 RATIO (0.7-1.3); PROTHROMBIN TIME 33.3 SECONDS (9.0-12.5)
[2020-02-13 06:47] LABS: CREATININE 1.5 mg/dL (0.7-1.3); POTASSIUM 4.9 mmol/l (3.5-5.1)
--- NOTE | 2020-02-13 13:17 | NUR ---
PT IS ALERT AND ORIENTED X 2. aBLE TO MAKE NEEDS KNOWN. SKIN WARM TO TOUCH. MEDICATION GIVEN AND TOLERATED WELL. MEAL AND FLUID INTAKE GOOD. PT USES URINAL THROUGHOUT THE DAY WITH STAFF ASSIST. IN BED AT THIS TME WITH EYES CLOSED. CALL LIGHT WITHIN REACH. BED ALARM IN PLACE. WILL CONTINUE TO OBSERVE.
--- NOTE | 2020-02-13 17:13 | NUR ---
PT IS IN BED WITH EYES OPEN. ABLE TO MAKE NEEDS KNOWN. SKIN WARM TO TOUCH. MEDS GIVEN AND TOLERATED WELL. COMPLAINED OF PAIN AT 4 ON SCALE OF 1-10 WITH 10 GREATEST IN NECK AND JOINTS. CONTINENT OF B/B. NS UP AND RUNNING WITH NO COMPLICATIONS
--- NOTE | 2020-02-13 19:42 | NUR ---
PT IS IN BED NO S/O DISTRES NOTED, PT MEDICATED ORDERS PROVIDE. PT OFFERED JUICE/PROVIDED, DENIES SNACK STATING "I'M FULL." PT DENIES HAVING BM THIS DAY, BUT IS USING URINAL WITH CLEAR YELLOW URINE AT BEDSIDE. ASSISTED PT CHANGING GOWN, STATED HE SPILLED SOMETHING ON IT. PT LOCX4 AT THIS TIME. DENIES ANY OTHER NEEDS.
--- NOTE | 2020-02-13 19:59 | NUR ---
PT SPILLED SOME URINE FROM URINAL ONTO BED. PT CLEANED AND PROVIDED LIAN-CARE, BEDDING AND GOWN CHANGED AT THIS TIME. PT POSITIONED IN BED FOR COMFORT, LEFT DRINKING GRAPE JUICE AND WATCHING TV. BED ALARM ON AND CALL LIGHT POSITIONED ON LAP.
--- NOTE | 2020-02-13 23:53 | NUR ---
PT IN BED AWAKE WATCHING TV. NO S/O DISTRESS NOTED. V/S ASSESSED AT THIS TIME. CALL LIGHT W/IN REACH, BED ALARM IS ON.
--- NOTE | 2020-02-14 | NUR ---
PATIENT STILL AWAKE AT THIS TIME, REFUSED SLEEP AID, OFFERED SNACKS CURRENTLY WATCHING TV, WILL CONTINUE TO MONITOR.
[2020-02-14 03:18] VITALS: BP 129/59
[2020-02-14 03:21] VITALS: BP 117/60
--- NOTE | 2020-02-14 03:27 | NUR ---
PT CALLED OUT FOR "HELP" UPON ENTERING ROOM, PT WAS IN BED, BUT APPEARED CONFUSED. HE STATED, "I CAN'T GET UP AND I NEED TO CALL OR GO TO WORK." I REMINDED PT THAT HE IS IN THE HOSPITAL, HE REPLIED "I KNOW I AM." WE ATTEMPTED TO TAKE ORTHOSTATIC BP'S AND OTHER V/S ASSESSED AT THIS TIME. PT WAS UNABLE TO TOLERATE ORTHO STANDING. C/O NECK PAIN AND WEAKNESS, MEDICATED WITH TYLENOL FOR PAIN AND REPOSITIONED FOR COMFORT. ASSISTED PT W/PO FLUIDS AND PILLOW.
[2020-02-14 04:51] LABS: HEMOGLOBIN 8.2 g/dl (14.0-18.0); MEAN CELL VOLUME 92.3 fL CALC (80.0-100.0); MEAN CORPUSCULAR HGB 30.3 pG CALC (26.0-32.0); MEAN CORPUSCULAR HGB CONC 32.8 g/dL CAL (32.0-36.0); RED BLOOD COUNT 2.71 mill/uL (4.70-6.10); RED CELL DISTRI WIDTH 13.5 % (11.5-15.5)
[2020-02-14 04:59] LABS: ALKALINE PHOSPHATASE 67 u/l (38-126); ANION GAP 10 (6-22 (CALC)); BUN 28 mg/dL (8-23); BUN/CREATININE RATIO 22 (12-20 (CALC)); CARBON DIOXIDE 21 mmol/l (22-30); CHLORIDE 106 mmol/l (95-108); CREATININE 1.2 mg/dL (0.7-1.3); GFR 58 ML/MIN (>=60 (CALC)); GFR FOR AFR.AMER. > 60 ML/MIN (>=60 (CALC)); POTASSIUM 4.7 mmol/l (3.5-5.1); SGOT/AST 22 u/l (19-48); SODIUM 132 mmol/l (137-146); TOTAL PROTEIN 5.5 g/dL (6.3-8.2)
[2020-02-14 05:00] LABS: ALBUMIN 2.8 g/dL (3.2-5.0); BILIRUBIN, TOTAL 0.2 mg/dL (0.0-1.4)
[2020-02-14 05:01] LABS: INTERNATIONAL NORMALIZED RATIO 2.6 RATIO (0.7-1.3); PROTHROMBIN TIME 26.1 SECONDS (9.0-12.5)
[2020-02-14 07:49] VITALS: BP 118/67
--- NOTE | 2020-02-14 09:00 | NUR ---
PT IS AWAKE, ALERT, ORIENTED X 2-3. LUNGS WITH CRACKLES IN BASES, RA, NO SHORTNESS OF BREATH NOTED. PT OOB TO CHAIR FOR BREAKFAST, GOOD APPETITE. NO COMPLAINT OF DIZZINESS.
[2020-02-14] MEDS ORDERED: LASIX 20 MG TAB20 MG PO (09:51)
[2020-02-14 11:19] VITALS: BP 125/57
--- NOTE | 2020-02-14 13:00 | NUR ---
PT CONTINUES BEFORE, RESTS IN THE CHAIR AT BEDSIDE EATING LUNCH. PT AWARE OF PENDING DISCHARGE BACK TO THE [facility]. NO DISTRESS, NO COMPLAINTS.
--- NOTE | 2020-02-14 15:07 | NUR ---
ATTEMPTED 2X TO CALL PT TO DISCUSS MEDS PER CM REQUEST, NO ANSWER
[2020-02-14 15:10] VITALS: BP 142/65
--- NOTE | 2020-02-14 18:46 | NUR ---
TELE DC'd BY DR SAPP. PT WITH CONFUSION AND CLARITY MIX.
[2020-02-14 18:57] VITALS: BP 122/72
--- NOTE | 2020-02-14 19:00 | NUR ---
RECEIVED REPORT FROM NURSE GIBSON PATIENT SITTING IN RECLINER, BREATHING EVEN AND UNLABORED, CALL LIGHT AT REACH.
--- NOTE | 2020-02-14 21:00 | NUR ---
PATIENT CURENTLY SITTING IN CHAIR, ALERT AND ORIENTEDX 2, ABLE TO MAKE NEEDS KNONW, DENIES PAIN OR DISCOMFORT, BREATHING EVEN AND UNLABORD, CALL LIGHT AT REACH.
--- NOTE | 2020-02-15 | NUR ---
PATIENT AWAKE AT THIS TIME, SITTING IN CHAIR, LOOKING FOR , PATIENT REORIENTED, CURRENTLY WATCHING TV WILL CONTINUE TO MONITOR.
--- NOTE | 2020-02-15 04:00 | NUR ---
PATIENT STILL AWAKE AT THIS TIME, INCONTINENT CARE PROVIDED, ASSISTED BACK IN BED, WILL CONTINUE TO MONITOR.
[2020-02-15 04:38] VITALS: BP 104/54
[2020-02-15 06:07] LABS: INTERNATIONAL NORMALIZED RATIO 1.9 RATIO (0.7-1.3); PROTHROMBIN TIME 19.1 SECONDS (9.0-12.5)
[2020-02-15 07:53] VITALS: BP 121/65
--- NOTE | 2020-02-15 07:53 | NUR ---
REPORT RECEIVED FROM GENESIS KILGORE. PT SITTING UP IN BEDSIDE CHAIR; ALERT AND ORIENTED TO PERSON ONLY; PLEASANTLY CONFUSED. DENIES PAIN. RESPIRATIONS EVEN AND UNLABORED ON ROOM AIR. BANDAID TO FOREHEAD WITH BLOODY DRAINGE; REMOVED; ABRASION CAP CUTTER WITH NO ACTIVE DRAINAGE. 1+ BILATERAL ANKLE EDEMA. LUNGS ARE CLEAR. PLAN OF CARE REVIEWED. PT ENCOURAGED TO VERABLIZE CONCERNS. STATES UNDERSTANDING. SAFETY MEASURES IN PLACE. CALL LIGHT WITHIN REACH.
[2020-02-15 08:46] VITALS: BP 121/65
--- NOTE | 2020-02-15 10:04 | NUR ---
02/14/20 PT note Patient is seen for PT screen and he would benefit from intervention is medical agrees
--- NOTE | 2020-02-15 11:30 | NUR ---
CLEAN CLOTHES PROVIDED FROM THE [facility] WHERE PT LIV[facility]; PT SUPERVISED AND DRESSED IN HOME CLOTHING. NO IV SITE; NO TELE.
--- NOTE | 2020-02-15 12:16 | NUR ---
CASE MANAGEMENT AT BEDSIDE TO DISCUSS ASSISTED HOME HEALTH ON DISCHARGE. ETA FOR TRANPORT BACK TO [facility] SCHEDULED FOR 1300.
[2020-02-15] MEDS ORDERED: COZAAR25 MG PO (12:26)
--- NOTE | 2020-02-15 13:57 | NUR ---
Discharge instructions given. Patient verbalizes understanding of same. Discharged in stable condition via Wheelchair to [facility] with staff. All belongings sent with pt.
== END 2020-02-15 13:15 | disposition home health service (06) ==
LOC: ED 12:42 → ED-I 16:06 → ED 16:22 → ED-I 16:23 → MS2 16:23
PROVIDERS: Nurse Practitioner Family; Student in an Organized Health Care Education/Training Program; ADMIT Internal Medicine; ATTEND Internal Medicine
DX: N17.9 Acute kidney failure, unspecified (principal); E86.0 Dehydration; E11.22 Type 2 diabetes mellitus with diabetic chronic kidney disease; I12.9 Hypertensive chronic kidney disease with stage 1 through stage 4 chronic kidney disease, or unspecified chronic kidney disease; N18.3 Chronic kidney disease, stage 3 (moderate); E87.1 Hypo-osmolality and hyponatremia; D63.1 Anemia in chronic kidney disease; R79.1 Abnormal coagulation profile; T45.515A Adverse effect of anticoagulants, initial encounter; S00.01XA Abrasion of scalp, initial encounter; F03.90 Unspecified dementia, unspecified severity, without behavioral disturbance, psychotic disturbance, mood disturbance, and anxiety; I25.10 Atherosclerotic heart disease of native coronary artery without angina pectoris; I48.0 Paroxysmal atrial fibrillation; E03.9 Hypothyroidism, unspecified; J44.9 Chronic obstructive pulmonary disease, unspecified; I25.2 Old myocardial infarction; W18.30XA Fall on same level, unspecified, initial encounter; Y92.099 Unspecified place in other non-institutional residence as the place of occurrence of the external cause; Z79.01 Long term (current) use of anticoagulants; Z87.820 Personal history of traumatic brain injury; Z86.73 Personal history of transient ischemic attack (TIA), and cerebral infarction without residual deficits; Z86.718 Personal history of other venous thrombosis and embolism; Z95.5 Presence of coronary angioplasty implant and graft; Z87.891 Personal history of nicotine dependence; Z20.828 Contact with and (suspected) exposure to other viral communicable diseases
CPT/HCPCS: G0378

== ENCOUNTER 2020-02-17 19:02 | Emergency (ER) | payer MEDICARE ==
[~2020-02-17 19:02] MED LIST changes: +COZAAR25 MG PO; +KLOR-CON SPRIN10 MEQ PO; +LASIX 20 MG TAB20 MG PO; +SPIRONOLACTONE25 MG PO
[2020-02-17 20:52] LABS: HEMATOCRIT 24.7 % (39.0-50.0); IMMATURE GRANULOCYTES 0.2 % (0.0-5.0); MEAN CELL VOLUME 91.8 fL CALC (80.0-100.0); MEAN CORPUSCULAR HGB 29.7 pG CALC (26.0-32.0); MEAN CORPUSCULAR HGB CONC 32.4 g/dL CAL (32.0-36.0); NEUT# 4.66 thou/uL (1.82-7.42); RED BLOOD COUNT 2.69 mill/uL (4.70-6.10); RED CELL DISTRI WIDTH 13.6 % (11.5-15.5)
[2020-02-17 21:04] LABS: CREATININE 1.5 mg/dL (0.7-1.3); POTASSIUM 4.7 mmol/l (3.5-5.1); TOTAL PROTEIN 6.6 g/dL (6.3-8.2)
[2020-02-17 21:09] LABS: ALBUMIN 3.4 g/dL (3.2-5.0); BILIRUBIN, TOTAL 0.3 mg/dL (0.0-1.4)
[2020-02-17 23:36] LABS: URINE BILIRUBIN - DIPSTICK NEGATIVE (NEGATIVE); URINE BLOOD DIPSTICK NEGATIVE (NEGATIVE); URINE COLOR YELLOW; URINE GLUCOSE - DIPSTICK NEGATIVE (NEGATIVE); URINE KETONE NEGATIVE (NEGATIVE); URINE LEUK ESTERASE NEGATIVE (NEGATIVE); URINE NITRITE - DIPSTICK NEGATIVE (Negative); URINE PH 5.5 (4.5-8.0); URINE PROTEIN - DIPSTICK NEGATIVE (NEG-TRACE); URINE UROBILINOGEN - DIPSTICK 0.2 E.U./dL (0.2)
[2020-02-18 02:00] VITALS: BP 100/52
== END 2020-02-18 02:05 | disposition short-term general hospital (02) ==
LOC: ED 19:02
PROVIDERS: Emergency Medicine
DX: R79.89 Other specified abnormal findings of blood chemistry (principal); R94.31 Abnormal electrocardiogram [ECG] [EKG]; F03.90 Unspecified dementia, unspecified severity, without behavioral disturbance, psychotic disturbance, mood disturbance, and anxiety; I10 Essential (primary) hypertension; J44.9 Chronic obstructive pulmonary disease, unspecified; E11.9 Type 2 diabetes mellitus without complications; E03.9 Hypothyroidism, unspecified; I25.2 Old myocardial infarction; Z86.718 Personal history of other venous thrombosis and embolism; Z95.5 Presence of coronary angioplasty implant and graft; Z86.73 Personal history of transient ischemic attack (TIA), and cerebral infarction without residual deficits; Z87.820 Personal history of traumatic brain injury

== ENCOUNTER 2020-06-09 19:32 | Emergency (ER) | payer MEDICARE ==
[~2020-06-09] VITALS: Ht 170.2 cm; Wt 145.0 kg
[2020-06-09 20:48] LABS: HEMATOCRIT 28.8 % (39.0-50.0); IMMATURE GRANULOCYTES 0.4 % (0.0-5.0); MEAN CELL VOLUME 92.3 fL CALC (80.0-100.0); MEAN CORPUSCULAR HGB 28.8 pG CALC (26.0-32.0); MEAN CORPUSCULAR HGB CONC 31.3 g/dL CAL (32.0-36.0); NEUT# 6.24 thou/uL (1.82-7.42); RED BLOOD COUNT 3.12 mill/uL (4.70-6.10); RED CELL DISTRI WIDTH 16.1 % (11.5-15.5)
[2020-06-09 20:55] LABS: ALBUMIN 3.7 g/dL (3.2-5.0); BILIRUBIN, TOTAL 0.3 mg/dL (0.0-1.4); CREATININE 1.6 mg/dL (0.7-1.3); INTERNATIONAL NORMALIZED RATIO 2.2 RATIO (0.7-1.3); POTASSIUM 4.2 mmol/l (3.5-5.1); PROTHROMBIN TIME 21.5 SECONDS (9.0-12.5); TOTAL PROTEIN 7.1 g/dL (6.3-8.2)
[2020-06-09 22:05] VITALS: BP 141/79
== END 2020-06-09 22:05 | disposition home or self-care (01) ==
LOC: ED 19:32
PROVIDERS: Emergency Medicine
DX: M54.2 Cervicalgia (principal); I10 Essential (primary) hypertension; J44.9 Chronic obstructive pulmonary disease, unspecified; F03.90 Unspecified dementia, unspecified severity, without behavioral disturbance, psychotic disturbance, mood disturbance, and anxiety; E03.9 Hypothyroidism, unspecified; I25.2 Old myocardial infarction; Z95.5 Presence of coronary angioplasty implant and graft; Z86.73 Personal history of transient ischemic attack (TIA), and cerebral infarction without residual deficits; Z86.718 Personal history of other venous thrombosis and embolism; Z87.820 Personal history of traumatic brain injury
CPT/HCPCS: L0120